=== PATIENT | female | born 1950 | race American Indian/Alaskan Native ===

== ENCOUNTER 2017-04-23 18:30 | Emergency (ER) | payer OTHER ==
[2017-04-23 18:50] VITALS: BMI 38.0
[2017-04-23 18:53] VITALS: TEMP 98.4
[2017-04-23 18:57] VITALS: O2SAT 99
--- NOTE | 2017-04-23 21:24 | ED PDOC ---
Arrival/HPI - General Historian: Patient EM Caveat: Uncooperative - History of Present Illness Time/Duration: < month ( 3wks ago) Symptom Onset: Gradual Symptom Course: Unchanged Quality: Aching, Stabbing, Throbbing Severity Level: 6, 7, 8 Activities at Onset: Rest, Light Context: Sitting, Standing, Walking <Aliya Wong - Last Filed: 04/23/17 23:10> <Dajuan Waters - Last Filed: 04/24/17 05:53> - General Chief Complaint: Lower Extremity Problem/Injury Time Seen by Provider: 04/23/17 20:34 - History of Present Illness Narrative History of Present Illness (Text): 04/23/17 21:18 Pt is a 66 yo F c/o right knee pain x 3 weeks s/p fall in home due to unsteady gait. Pt states that she had a TKR in 2008 and is worried that 'something has shifted'. She describes the pain as aching and sharp at times. States she also has pain that starts at the right LB and radiates down to knee. Pt did not ice the area and has taken OTC pain medication as needed. Pt also reports cervical spinal surgery in 2014. Denies cp, sob, n/v/d, LOC or syncopal events. Pt has a PMD but states that they are no longer at the office. Pt agitates easily during interrogation. 04/23/17 21:38 (Aliya Wong) Past Medical History - Provider Review Nursing Documentation Reviewed: Yes - Travel History Have you recently traveled outside [place] w/in the past 3 mons?: No - Past History Past History: No Previous - Infectious Disease Hx of Infectious Diseases: None - Tetanus Immunization Tetanus Immunization: Unknown - Reproductive Menopause: Yes Currently : No - Cardiac Hx Hypertension: Yes - Pulmonary Hx Respiratory Disorders: No - Neurological Hx Neurological Disorder: No - HEENT Hx HEENT Disorder: No - Renal Hx Renal Disorder: No - Endocrine/Metabolic Hx Endocrine Disorders: No - Hematological/Oncological Hx Blood Disorders: No - Integumentary Hx Dermatological Disorder: No - Musculoskeletal/Rheumatological Hx Gout: Yes - Gastrointestinal Hx Gastrointestinal Disorders: No - Genitourinary/Gynecological Hx Genitourinary Disorders: No - Psychiatric Hx Psychophysiologic Disorder: No Hx Substance Use: No - Anesthesia Hx Anesthesia: Yes <Aliya Wong - Last Filed: 04/23/17 23:10> Family/Social History Smoking Status: Never Smoked Hx Alcohol Use: No Hx Substance Use: No <Aliya Wong - Last Filed: 04/23/17 23:10> - Physician Review Nursing Documentation Reviewed: Yes Family/Social History: No Known Family HX <Dajuan Waters - Last Filed: 04/24/17 05:53> Allergies/Home Meds <Aliya Wong - Last Filed: 04/23/17 23:10> <Dajuan Waters - Last Filed: 04/24/17 05:53> Allergies/Adverse Reactions: Allergies No Known Allergies Allergy (Verified 04/23/17 18:50) Home Medications: Home Meds Medication Instructions Recorded Confirmed cloNIDine [Catapres] 0.3 mg PO TID 04/23/17 04/23/17 Physical Exam - Physical Exam Physical Exam Limitations: Uncooperative Vital Signs Reviewed: Yes Temperature: Afebrile Blood Pressure: Hypertensive Pulse: Regular Respiratory Rate: Normal Appearance: Positive for: Well-Appearing, Non-Toxic, Comfortable Pain Distress: Mild Mental Status: Positive for: Alert and Oriented X 3, Agitated - Systems Exam Head: Present: Atraumatic, Normocephalic Extroacular Muscles: Present: EOMI Conjunctiva: Present: Normal Mouth: Present: Moist Mucous Membranes Respiratory/Chest: Present: Clear to Auscultation, Good Air Exchange. No: Respiratory Distress, Accessory Muscle Use, Wheezes, Decreased Breath Sounds, Rales, Retracting, Rhonchi, Tachypneic, Tender to Palpation, Other Cardiovascular: Present: Regular Rate and Rhythm, Normal S1, S2. No: Murmurs, Irregular Rhythm, Peripheal Pulses Present, Tachycardic, Bradycardic, Rub, Gallop, Muffled, Other Abdomen: Present: Normal Bowel Sounds. No: Tenderness, Distention, Peritoneal Signs Back: Present: Normal Inspection Upper Extremity: Present: Normal Inspection. No: Cyanosis, Edema Lower Extremity: Present: Normal Inspection, NORMAL PULSES, Normal ROM, Tenderness (right knee and lateral patellar pain), Neurovascularly Intact, Capillary Refill < 2 s. No: Edema Neurological: Present: GCS=15, Speech Normal Skin: Present: Warm, Dry, Normal Color, Other (sebaceous gland irritation on right buttocks cheek) Psychiatric: Present: Alert, Oriented x 3, Agitated <Aliya Wong - Last Filed: 04/23/17 23:10> Vital Signs Temp Pulse Resp BP Pulse Ox 04/23/17 23:21 85 18 135/78 99 04/23/17 20:30 86 18 145/83 99 04/23/17 18:53 98.4 F 84 17 170/90 H 99 04/23/17 18:52 98.4 F 84 20 170/90 H 96 Medical Decision Making <Aliya Wong - Last Filed: 04/23/17 23:10> <Dajuan Waters - Last Filed: 04/24/17 05:53> ED Course and Treatment: 04/23/17 21:32 Pt is a 66 yo F c/o right knee pain x 3 weeks s/p fall in home due to unsteady gait. Working Dx: 1. Right leg fx 2. Right knee hardware shift 3. Lumbar radiculopathy Right Tib/Fib XR and 3 view knee w patella 04/23/17 22:46 Plan: 1. Imaging of right LE 2. Ketorolac 30 mg IM once for pain management 3. Ibuprofen 600mg po q6 hrs for pain and inflammation 4. Advise pt to F/U with PMD in 1 week (Aliya Wong) - RAD Interpretation Radiology Orders: 04/23/17 21:11 KNEE W PATELLA RIGHT 3 VIEW [RAD] Stat 04/23/17 21:14 TIBIA FIBULA RT FALL PROTOCOL [RAD] Stat - Medication Orders Current Medication Orders: Discontinued Medications Ketorolac Tromethamine (Toradol) 30 mg IVP STAT STA Stop: 04/23/17 23:00 Last Admin: 04/23/17 23:10 Dose: 30 mg MAR Pain Assessment Document 04/23/17 23:10 [facility] ([facility]23[facility]17 [id number] Pain Reassessment Is this a pain reassessment? No Sleep Is patient sleeping during reassessment? No Presence of Pain Presence of Pain Yes Pain Scale Used Pain Scale Used Numeric Location Pain Location Body Site Knee IVP Administration Document 04/23/17 23:10 JOL (Rec: 04/23/17 23:21 [id number]) Charges for Administration # of IVP Administrations 1 - PA / RECOVERY MANAGER / Resident Statement MD/DO has reviewed & agrees with the documentation as recorded. <JtDajuan - Last Filed: 04/24/17 05:53> Disposition/Present on Arrival - Present on Arrival Any Indicators Present on Arrival: No History of DVT/PE: No History of Uncontrolled Diabetes: No Urinary Catheter: No History of Decub. Ulcer: No History Surgical Site Infection Following: None - Disposition Have Diagnosis and Disposition been Completed?: Yes Patient Plan: Discharge <Aliya Wong - Last Filed: 04/23/17 23:10> - Present on Arrival Any Indicators Present on Arrival: No - Disposition Have Diagnosis and Disposition been Completed?: Yes Disposition Time: 23:20 <MellissaDajuan hobson - Last Filed: 04/24/17 05:53> - Disposition Diagnosis: Knee pain, right Disposition: HOME/ ROUTINE Condition: GOOD Discharge Instructions (ExitCare): Ibuprofen (By mouth), Swollen Knee Joint (ED ), Knee Pain (ED) Additional Instructions: Dear Patient, Thank you trusting us in your care. Please note that your current diagnosis of knee pain can be treated with a non- steroidal anti-inflammatory drug, such as ibuprofen that will reduce inflammation and pain at the injury site. You should have some food in your stomach BEFORE taking your prescribed medication. We would like you to follow up with your Primary Care Doctor in the next week to make sure that you manage your pain and prevent another fall. If you have severe increase in pain, fever, chills, or balance, please return to the emergency department for further evaluation. All the best in your recovery Be well. Prescriptions: Ibuprofen [Motrin Tab] 600 mg PO Q6 PRN 5 Days #20 tab PRN Reason: pain/fever Forms: [employer] ([place])
[2017-04-24 03:38] VITALS: BP 135/78; PULSE 85; RESP 18
--- NOTE | 2017-04-24 08:34 | RAD ---
PROCEDURE: Radiographs of the right tibia and fibula. HISTORY: Fall COMPARISON: None available. TECHNIQUE: Frontal and lateral views obtained. FINDINGS: BONES: No fracture or destructive lesion. JOINT SPACES: Unremarkable. OTHER FINDINGS: None. IMPRESSION: No acute fracture
--- NOTE | 2017-04-24 08:35 | RAD ---
PROCEDURE: Right Knee Radiographs. HISTORY: injury COMPARISON: None. FINDINGS: BONES: Normal. No fracture. JOINTS: There is a right knee prosthesis in satisfactory alignment. JOINT EFFUSION: None. OTHER FINDINGS: None. IMPRESSION: No acute fracture
== END 2017-04-23 23:22 | disposition home or self-care (01) ==
LOC: ED 18:30
DX: M25.561 Pain in right knee (principal); Z96.651 Presence of right artificial knee joint
CPT/HCPCS: 73562; 73590; 96374; 99284; J1885